=== PATIENT | male | born 1930 | race Caucasian/White ===

== ENCOUNTER 2017-02-28 12:25 | Emergency (ER) | payer OTHER ==
[~2017-02-28] VITALS: Ht 167.6 cm; Wt 104.5 kg
[~2017-02-28 12:25] MED LIST: ACET325 PO; ALBU2.5I INH; ALUM5LIQ PO; ASPI81TA82 PO; BENA25TA5 PO; BISA10SU8 PR; CHOL1CAP6 PO; CLON.1 PO; CYCL-36 PO; DOCU1CAP39 PO; DOXA1 PO; ENAL10TA7 PO; FENT50DI TD; FISH100020 OR; FURO1TAB93 PO; GABA300C3 PO; GLUC1VIA2 IM; LEXA5TAB PO; LORTA10 PO; MAGN30S PO; METO50TA PO; MIRA33502 PO; NOVORP2 SQ; POTA-243 PO; PROT40TA PO; SPIR50TA PO; TAB-TAB PO; VITA100017 PO; VITA100O PO; XANA0.5T PO; ZOCO80TA PO; ZOLP10TA3 PO
[2017-02-28 12:31] VITALS: BP 138/61; PULSE 65; RESP 16; TEMP 98.3; O2SAT 97
--- NOTE | 2017-02-28 12:33 | PD ---
HPI Chief Complaint: Injury Time Seen by Provider: 12:32 Travel History International Travel<30 days: No Contact w/Intl Traveler<30days: No Traveled to known affect area: No History of Present Illness HPI 87-year-old right-handed male presents to the emergency room for evaluation of right shoulder pain after trip and fall earlier today. Patient tripped on his feet and felt to the right landing directly on his right shoulder. He had immediate pain. States he hit his right hip and elbow as well but denies significant pain in his areas. He has been ambulatory since falling. Denies hitting his head or loss of consciousness. Pain is 2/10 when he is not moving but it increases greatly with any range of motion of the upper extremity. He denies paresthesias. Patient has history of rotator cuff surgery in the same arm. Patient has history of congestive heart failure, hypertension, anxiety, hypercholesterolemia, anxiety, and depression. PFSH Past Medical History Arthritis: Yes Asthma: No Autoimmune Disease: No Blood Disorders: No Anxiety: Yes Heart Rhythm Problems: No Cancer: Yes (prostate) Cardiovascular Problems: Yes High Cholesterol: Yes Chemotherapy: No Chest Pain: No Congestive Heart Failure: No COPD: No Cerebrovascular Accident: No Diabetes: No Endocrine: No Gastrointestinal Disorders: Yes GERD: No Genitourinary: Yes Hepatitis: No Hiatal Hernia: No Hypertension: Yes Immune Disorder: No Kidney Stones: No Musculoskeletal: Yes Neurologic: Yes Psychiatric: Yes (PT ON LEXAPRO FOR ANXIETY) Reproductive: No Respiratory: Yes (SOB) Migraines: No Radiation Therapy: No Renal Failure: No Seizures: No Sleep Apnea: Yes Thyroid Disease: No Ulcer: No Past Surgical History Abdominal Surgery: No AICD: No Arteriovenous Shunt: No Body Medical Devices: RT TIBIA 2 PLATES AND 8 SCREWS Cardiac Surgery: No Ear Surgery: No Endocrine Surgery: No Eye Surgery: Yes (BILATERAL CATARACT EXTACTION) Genitourinary Surgery: No Gynecologic Surgery: Yes (PROSTATECTOMY) Insulin Pump: No Joint Replacement: No Oral Surgery: Yes (REPAIR DEVIATED NASAL SEPTUM; TONSILLECTOMY) Pacemaker: No Thoracic Surgery: No Social History Alcohol Use: Yes (occ) Tobacco Use: No Substance Use: No Allergies-Medications (Allergen,Severity, Reaction): Coded Allergies: No Known Allergies (Verified , 02/28/17) Reported Meds & Prescriptions Reported Meds & Active Scripts Active Percocet (Oxycodone-Acetaminophen) 5-325 mg Tab 1 Tab PO Q6H PRN Reported Aspirin 81 Mg Chew 81 Mg CHEW DAILY Glucosamine 1,500 Mg Tab 1,500 Mg PO DAILY Multiple Vitamin 1 Tab 1 Tab PO DAILY Vitamin C (Ascorbic Acid) 250 Mg Chew 250 Mg CHEW DAILY Vitamin E 200 Unit Cap 400 Units PO DAILY D3 Super Strength (Cholecalciferol) 2,000 Unit Cap 2,000 Units PO DAILY Gabapentin 300 Mg Cap 300 Mg PO BID Alprazolam 0.5 Mg Tab 0.5 Mg PO Q8H PRN Escitalopram (Escitalopram Oxalate) 5 Mg Tab 5 Mg PO DAILY Simvastatin 40 Mg Tab 40 Mg PO HS Enalapril (Enalapril Maleate) 10 Mg Tab 10 Mg PO DAILY Furosemide 40 Mg Tab 40 Mg PO DAILY Spironolactone 50 Mg Tab 50 Mg PO DAILY Review of Systems Except as stated in HPI: all other systems reviewed are Neg Physical Exam Narrative GENERAL: Well-nourished, well-developed male in no acute distress. Afebrile. Ambulatory. SKIN: Focused skin assessment warm/dry. HEAD: Normocephalic. EYES: No scleral icterus. No injection or drainage. NECK: Supple, trachea midline. No JVD or lymphadenopathy. CARDIOVASCULAR: Regular rate and rhythm without murmurs, gallops, or rubs. RESPIRATORY: Breath sounds equal bilaterally. No accessory muscle use. EXTREMITY: Extreme tenderness to palpation humeral head. 2+ radial pulse. Radial, ulnar, and median nerves intact. Full range of motion of the hand. Limited range motion of the shoulder secondary to pain. No clavicle pain. Data Data Last Documented VS Vital Signs Date Time Temp Pulse Resp B/P Pulse Ox O2 Delivery O2 Flow Rate FiO2 02/28/17 14:20 62 16 132/62 95 02/28/17 12:31 98.3 Room Air Orders Shoulder, Limited(2vws) (02/28/17 ) Oxycodone-Acetamin 5-325 Mg (Percocet (02/28/17 13:00) Splint Or Brace Apply/Monitor (02/28/17 13:26) Morphine Inj (Morphine Inj) (02/28/17 13:45) MDM Medical Decision Making Medical Screen Exam Complete: Yes Emergency Medical Condition: Yes Medical Record Reviewed: Yes Differential Diagnosis Fracture, dislocation, sprain, strain, rotator cuff injury Narrative Course 87-year-old male presents to the emergency room for evaluation of right upper arm pain after falling on it just prior to arrival. Patient landed directly on his right shoulder. Denies hitting his head or loss of consciousness. Right upper extremity is neurovascularly intact. 2+ her pulse. Radial, ulnar, median nerves intact. Limited range of motion secondary pain. Extreme tenderness to palpation of the humeral head. X-ray shows oblique, nondisplaced fracture through the proximal humerus. Patient placed in sling and swath. Given Percocet in the emergency room and discharged with prescription for the same. Told to follow-up with an orthopedic surgeon this week or return for worsening symptoms. He understands and agrees to plan. Diagnosis Primary Impression: Right humeral fracture Qualified Code: S42.294A - Other closed nondisplaced fracture of proximal end of right humerus, initial encounter Referrals: Orthopaedic Surgeon Primary Care Physician Patient Instructions: General Instructions, Proximal Humerus Fracture (ED) Additional Instructions: Rest and drink plenty of fluids. Take Percocet as directed, as needed for pain. Do not drink alcohol or drive while taking this medication. Apply ice to the affected area for 20 minutes at a time, as needed for pain and swelling. Follow-up with an orthopedic surgeon. Return to the emergency room for worsening symptoms. Med/Other Pt SpecificInfo: Prescription(s) given Scripts Oxycodone-Acetaminophen (Percocet)5-325 mg Tab1 Tab PO Q6H PRN (PAIN) #12 TAB Ref 0 Prov:Myrna Hester MD 02/28/17 Disposition: 01 DISCHARGE HOME Condition: Stable Jennifer Davalos Feb 28, 2017 12:33
[2017-02-28] MEDS ORDERED: SIMV40TA PO (12:48)
[2017-02-28] MEDS ORDERED: ENAL10TA PO (12:48)
[2017-02-28] MEDS ORDERED: GABA300C5 PO (12:48)
[2017-02-28] MEDS ORDERED: ESCI5TAB PO (12:48)
[2017-02-28] MEDS ORDERED: FURO40TA PO (12:48)
[2017-02-28] MEDS ORDERED: MULTTAB67 PO (12:48)
[2017-02-28] MEDS ORDERED: GLUC15009 PO (12:48)
[2017-02-28] MEDS ORDERED: VITA250C3 CHEW (12:48)
[2017-02-28] MEDS ORDERED: VITA200C3 PO (12:48)
[2017-02-28] MEDS ORDERED: ASPI81CH CHEW (12:48)
[2017-02-28] MEDS ORDERED: ALPR0.5T3 PO (12:48)
[2017-02-28] MEDS ORDERED: SPIR50TA PO (12:48)
[2017-02-28] MEDS ORDERED: CHOL20005 PO (12:48)
[2017-02-28] MEDS ORDERED: oxyCODONE/ACETAMINOPHEN 5 MG/325 MG TAB PO ONE (13:00)
--- NOTE | 2017-02-28 13:03 | RADRPT ---
EXAM DATE/TIME: 02/28/2017 12:44 [facility] COMPARISON: No previous studies available for comparison. INDICATIONS : Fell at [facility] today MEDICAL HISTORY : None. SURGICAL HISTORY : None. ENCOUNTER: Initial ACUITY: 1 day PAIN SCORE: 9/10 LOCATION: Right shoulder FINDINGS: Two view examination of the right shoulder demonstrates a fracture through the right humeral head rolo ears to be relatively nondisplaced on these 2 views. No joint dislocation is seen. There are degenera tive changes involving the shoulder joint.. CONCLUSION: There is an oblique nondisplaced fracture through the proximal right humerus. Francisco Olivera MD on February 28, 2017 at 13:00 Board Certified Radiologist. This report was verified electronically.
[2017-02-28] MEDS ORDERED: PERC5TAB12 PO (13:27)
[2017-02-28] MEDS ORDERED: MORPHINE SULFATE 4 MG/ML INJ IM ONE (13:45)
[2017-02-28 13:48] VITALS: RESP 16
[2017-02-28 14:20] VITALS: BP 132/62
== END 2017-02-28 14:40 | disposition home or self-care (01) ==
LOC: PHEFT 12:25
DX: S42.294A Other nondisplaced fracture of upper end of right humerus, initial encounter for closed fracture (principal); W01.0XXA Fall on same level from slipping, tripping and stumbling without subsequent striking against object, initial encounter; E78.00 Pure hypercholesterolemia, unspecified; I10 Essential (primary) hypertension; G47.30 Sleep apnea, unspecified; I50.9 Heart failure, unspecified
CPT/HCPCS: 29240; 73030; 96372; 99284; J2270